=== PATIENT | female | born 1990 | race American Indian/Alaskan Native ===

== ENCOUNTER 2017-11-26 06:28 | Emergency (ER) | payer MEDICAID ==
--- NOTE | 2017-11-26 09:31 | Emergency Department Report ---
ED ENT HPI - General Chief complaint: Dental/Oral Stated complaint: TOOTHACHE Time Seen by Provider: 11/26/17 09:18 Source: patient Mode of arrival: Ambulatory Limitations: No Limitations - History of Present Illness Initial comments: Patient is 27-year-old black female was presented with toothache the right upper and lower teeth posteriorly for the past 2 weeks. Patient states that she now has some facial swelling as well. Patient denies any fevers chills nausea vomiting. Patient states pain is 10 out of 10 and is aching. MD complaint: tooth pain - Related Data Previous Rx's Medication Instructions Recorded Last Taken Type Clindamycin [Clindamycin CAP] 300 mg PO Q8H 7 Days cap 11/26/17 Unknown Rx HYDROcodone/APAP 5-325 [[place] 1 each PO Q4HR PRN #12 tablet 11/26/17 Unknown Rx 5/325] Ibuprofen [Motrin] 600 mg PO Q8H PRN #20 tablet 11/26/17 Unknown Rx Nystas/Diphen/Xyl Visc/Mylanta 30 ml MM Q4H #300 ml 11/26/17 Unknown Rx [Magic Mouthwash] Allergies Allergy/AdvReac Type Severity Reaction Status Date / Time No Known Allergies Allergy Unverified 11/26/17 07:17 ED Dental HPI - General Chief complaint: Dental/Oral Stated complaint: TOOTHACHE Time Seen by Provider: 11/26/17 09:18 Source: patient Mode of arrival: Ambulatory Limitations: No Limitations - Related Data Previous Rx's Medication Instructions Recorded Last Taken Type Clindamycin [Clindamycin CAP] 300 mg PO Q8H 7 Days cap 11/26/17 Unknown Rx HYDROcodone/APAP 5-325 [[place] 1 each PO Q4HR PRN #12 tablet 11/26/17 Unknown Rx 5/325] Ibuprofen [Motrin] 600 mg PO Q8H PRN #20 tablet 11/26/17 Unknown Rx Nystas/Diphen/Xyl Visc/Mylanta 30 ml MM Q4H #300 ml 11/26/17 Unknown Rx [Magic Mouthwash] Allergies Allergy/AdvReac Type Severity Reaction Status Date / Time No Known Allergies Allergy Unverified 11/26/17 07:17 ED Review of Systems ROS: Stated complaint: TOOTHACHE Other details as noted in HPI Comment: All other systems reviewed and negative ED Past Medical Hx - Past Medical History Previous Medical History?: Yes Additional medical history: vaginal dleivery x 5 - Surgical History Past Surgical History?: No Additional Surgical History: Left arm with Nexplonon controll implant - Social History Smoking Status: Never Smoker Substance Use Type: Alcohol, Non Opiate Pain - Medications Home Medications: Home Medications Medication Instructions Recorded Confirmed Last Taken Type Clindamycin [Clindamycin CAP] 300 mg PO Q8H 7 Days cap 11/26/17 Unknown Rx HYDROcodone/APAP 5-325 [[place] 1 each PO Q4HR PRN #12 tablet 11/26/17 Unknown Rx 5/325] Ibuprofen [Motrin] 600 mg PO Q8H PRN #20 tablet 11/26/17 Unknown Rx Nystas/Diphen/Xyl Visc/Mylanta 30 ml MM Q4H #300 ml 11/26/17 Unknown Rx [Magic Mouthwash] ED Physical Exam - General Limitations: No Limitations General appearance: alert, in no apparent distress - Head Head exam: Present: atraumatic, normocephalic - Eye Eye exam: Present: normal appearance - ENT ENT exam: Present: mucous membranes moist, other (patient overlying the top right first and second molar has an aphthous ulcer along the gumline. Patient also has right bottom molar posterior tenderness to palpation consistent with possible abscess. Patient also has some mild swelling to the angle of the jaw consistent with some facial cellulitis.) - Neck Neck exam: Present: normal inspection - Respiratory Respiratory exam: Present: normal lung sounds bilaterally. Absent: respiratory distress - Cardiovascular Cardiovascular Exam: Present: regular rate, normal rhythm. Absent: systolic murmur, diastolic murmur, rubs, gallop - GI/Abdominal GI/Abdominal exam: Present: soft, normal bowel sounds - Extremities Exam Extremities exam: Present: normal inspection - Back Exam Back exam: Present: normal inspection - Neurological Exam Neurological exam: Present: alert, oriented X3 - Psychiatric Psychiatric exam: Present: normal affect, normal mood - Skin Skin exam: Present: warm, dry, intact, normal color. Absent: rash ED Course Vital Signs 11/26/17 11/26/17 06:31 07:17 Temperature 98.5 F 98.5 F Pulse Rate 83 83 Respiratory 18 18 Rate Blood Pressure 136/96 136/96 O2 Sat by Pulse 100 100 Oximetry Critical care attestation.: If time is entered above; I have spent that time in minutes in the direct care of this critically ill patient, excluding procedure time. ED Disposition Clinical Impression: Facial cellulitis, Dental abscess, Stomatitis Disposition: TO HOME OR SELFCARE Is pt being admited?: No Does the pt Need Aspirin: No Condition: Stable Instructions: Dental Abscess (ED) Prescriptions: Clindamycin [Clindamycin CAP] 300 mg PO Q8H 7 Days cap HYDROcodone/APAP 5-325 [[place] 5/325] 1 each PO Q4HR PRN #12 tablet PRN Reason: Pain Ibuprofen [Motrin] 600 mg PO Q8H PRN #20 tablet PRN Reason: Pain Nystas/Diphen/Xyl Visc/Mylanta [Magic Mouthwash] 30 ml MM Q4H #300 ml Referrals: [facility] [Outside] - 3-5 Days
[2017-11-26 09:40] VITALS: BP 122/70
== END 2017-11-26 09:39 | disposition home or self-care (01) ==
LOC: ED 06:28
DX: K04.7 Periapical abscess without sinus (principal); K12.1 Other forms of stomatitis; L03.211 Cellulitis of face
CPT/HCPCS: 99282

== ENCOUNTER 2021-12-21 19:48 | Emergency (ER) | payer MEDICAID ==
[2021-12-21] MEDS ORDERED: FLUORESCEIN 1 MG STRIP OP ONE (20:43)
[2021-12-21] MEDS ORDERED: TETANUS,DIPH,PERTUSS(ACELL) VACCINE 0.5 ML SYRINGE IM ONE (20:43)
[2021-12-21] MEDS ORDERED: TETRACAINE 0.5% OPHTH SOLN 4ML OU PRN (20:43)
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
[2021-12-21 22:18] VITALS: BP 136/87
== END 2021-12-21 22:18 | disposition home or self-care (01) ==
LOC: ED 19:48
DX: S05.91XA Unspecified injury of right eye and orbit, initial encounter (principal); S05.01XA Injury of conjunctiva and corneal abrasion without foreign body, right eye, initial encounter; X58.XXXA Exposure to other specified factors, initial encounter; Y93.89 Activity, other specified; Y92.89 Other specified places as the place of occurrence of the external cause; Y99.8 Other external cause status
CPT/HCPCS: 90471; 90715; 99283